=== PATIENT | male | born 1955 | race Caucasian/White ===

== ENCOUNTER 2017-11-23 19:46 | Emergency (ER) | payer MEDICARE, OTHER ==
[~2017-11-23] VITALS: Ht 177.8 cm; Wt 99.8 kg
[~2017-11-23 19:46] MED LIST: ASPI325; AZIT500 PO; Augmentin 875-1 EACH PO; CEFP200 PO; NAPR500 PO; OXYACE5T PO; Percocet 5-3251 EACH PO; SERT25; SERT50; SULTRIDS PO; TRAM50 PO
[2017-11-23] MEDS ORDERED: CHOLESTEROL MED (20:38)
[2017-11-23] MEDS ORDERED: BP MEDS (20:38)
[2017-11-23] MEDS ORDERED: ERYT1OIN RIGHTEYE (21:35)
== END 2017-11-23 21:44 | disposition home or self-care (01) ==
LOC: ER 19:46
DX: T15.01XA Foreign body in cornea, right eye, initial encounter (principal); I10 Essential (primary) hypertension; E78.5 Hyperlipidemia, unspecified; F17.200 Nicotine dependence, unspecified, uncomplicated; Z88.0 Allergy status to penicillin; Z88.6 Allergy status to analgesic agent; Z79.899 Other long term (current) drug therapy
CPT/HCPCS: 65205; 99283

== ENCOUNTER 2023-11-29 08:19 | Day surgery (SDC) | payer MEDICARE, OTHER ==
[~2023-11-29] VITALS: Ht 177.8 cm; Wt 107.0 kg
[~2023-11-29 08:19] MED LIST changes: +AMLODIPINE BESY10 MG PO; +Aspir 8181 MG PO; +BP MEDS; +Balanced Salt Epinephrine Irrigation Solution 500 mL IR SCH; +CHOLESTEROL MED; +ERYT1OIN RIGHTEYE; +IRBESARTAN300 M3 PO; +JANTOVEN1 M2 PO; +Lidocaine HCl/Pf 1% 5 ML VIAL XX SCH; +METOPROLOL TART5010 PO; +Moxifloxacin HCL 0.5 MG/0.1 ML 0.4MLSYR RIGHTEYE SCH; +NS 500 ML IV ONE; +PANTOPRAZOLE SO40 M2 PO; +PHENYLEPHRINE\\TROPICAMIDE\\TETRACAINE OPHTHALMIC DILATING SOLN RIGHTEYE PRN; +Povidone-Iodine 450 DROP/30 ML Solution ONE; +Povidone-Iodine 450 DROP/30 ML Solution RIGHTEYE SCH; +ROSUVASTATIN CA10 MG PO; +Tetracaine HCl/Pf 0.5% Opth Soln 4 ml ONE; +Triamcinolone Inj Susp 40 MG / ML 1ML Vial INJ SCH; +Triamcinolone Inj Susp 40 MG / ML 1ML Vial ONE
[2023-11-29] MEDS ORDERED: FentaNYL Citrate 50 MCG/ML 2 ML Injection ONE (08:25)
[2023-11-29] MEDS ORDERED: Midazolam HCl 1MG / ML 2ML Vial ONE ×2 (08:26→09:34)
[2023-11-29] MEDS ORDERED: NS 500 ML IV ONE ×2 (08:59→09:13)
[2023-11-29 09:55] VITALS: BP 130/77
== END 2023-11-29 10:04 | disposition home or self-care (01) ==
LOC: ORSCSDS 08:19
PROVIDERS: Ophthalmology
PROC: 08RJ3JZ Replacement of Right Lens with Synthetic Substitute, Percutaneous Approach (ICD-10-PCS; principal; 2023-11-29 09:30)
DX: H25.811 Combined forms of age-related cataract, right eye (principal); Z96.1 Presence of intraocular lens; I10 Essential (primary) hypertension; Z79.01 Long term (current) use of anticoagulants; Z79.899 Other long term (current) drug therapy
CPT/HCPCS: J2250; J3010; J3301; J7040; V2632